=== PATIENT | female | born 1990 | race Caucasian/White ===

== ENCOUNTER 2020-10-10 03:04 | Outpatient (CLI) | payer MEDICAID, SELFPAY ==
[2020-10-10 12:24] LABS: Abs Immature Grans 0.01 10^3/uL (0.0-0.06); Absolute Basophil Count 0.04 10^3/uL (0.0-0.2); Absolute Eosinophil Count 0.25 10^3/uL (0.0-0.7); Absolute Lymphocyte Count 1.94 10^3/uL (1.2-3.4); Absolute Monocyte Count 0.37 10^3/uL (0.1-0.8); Absolute Neutrophil Count 1.83 10^3/uL (1.2-6.7); Basophils % 0.9; Eosinophils % 5.6; HCT 42.4 % (36.0-46.0); HGB 13.7 g/dL (11.2-15.7); Immature Grans % 0.2; Lymphocytes % 43.7; MCH 31.4 pg (27.0-33.0); MCHC 32.3 % (32.0-36.0); MPV 10.1 fL (8.0-11.0); Monocytes % 8.3; Neutrophils % 41.3; Nucleated RBC 0 %; Platelet Count 300 10^3/uL (130-400); RBC 4.37 10^6/uL (3.93-5.22); RDW 11.5 % (11.7-14.6); RDW-SD 41.3 fL; WBC 4.44 10^3/uL (4.4-10.8)
[2020-10-10 12:44] LABS: Hemoglobin A1C 5.4 % (<5.7)
[2020-10-10 12:50] LABS: ALT 26 U/L (14-59); AST 19 U/L (15-37); Albumin 4.1 g/dL (3.4-5.0); Alkaline Phosphatase 62 U/L (46-116); Anion Gap 7.9 mmol/L (3-11); BUN 9 mg/dL (7-18); Bilirubin, Total 0.6 mg/dL (0.2-1.0); CO2 31.1 mmol/L (21.0-32.0); CREATININE 0.8 mg/dL (0.55-1.02); Calcium 8.9 mg/dL (8.5-10.1); Calculated LDL 87 mg/dL (<100); Chloride 104 mmol/L (98-107); Cholesterol 191 mg/dL (<200); Glucose 82 mg/dL (74-106); HDL Cholesterol 98 mg/dL (40-60); Potassium 3.9 mmol/L (3.5-5.1); Sodium 143 mmol/L (136-145); Triglyceride 33 mg/dL (<150)
[2020-10-10 13:03] LABS: Vitamin D 25 Total 36.2 ng/ml (30-100)
[2020-10-10 13:17] LABS: FREE T4 0.93 ng/dL (0.76-1.46)
[2020-10-10 17:57] LABS: Thyroglobulin Antibody <15 U/mL (<=60)
[2020-10-11 13:00] LABS: Lipoprotein (a) 11 mg/dL (<=30)
[2020-10-12 08:33] LABS: Free Retinol (Vitamin A) 47.3 mcg/dL (32.5-78.0)
[2020-10-12 09:34] LABS: IgE 32 IU/mL (<158)
[2020-10-12 09:43] LABS: Homocysteine 12.5 umol/L (5.0-13.9)
== END 2020-10-10 03:05 | disposition home or self-care (01) ==
LOC: LOS 03:05
PROVIDERS: PCP Family Medicine; Visit Provider Naturopath
DX: E55.9 Vitamin D deficiency, unspecified (principal); Z13.220 Encounter for screening for lipoid disorders; Z13.1 Encounter for screening for diabetes mellitus; Z80.8 Family history of malignant neoplasm of other organs or systems; T78.1XXA Other adverse food reactions, not elsewhere classified, initial encounter
CPT/HCPCS: 36415; 80053; 80061; 82306; 83090; 83695; 82785; 83036; 84439; 84443; 84590; 85025; 86800

== ENCOUNTER 2021-01-10 01:57 | Outpatient (CLI) | payer MEDICAID, SELFPAY ==
[2021-01-10 08:52] LABS: Abs Immature Grans 0.01 10^3/uL (0.0-0.06); Absolute Basophil Count 0.06 10^3/uL (0.0-0.2); Absolute Eosinophil Count 0.68 10^3/uL (0.0-0.7); Absolute Lymphocyte Count 2.04 10^3/uL (1.2-3.4); Absolute Monocyte Count 0.57 10^3/uL (0.1-0.8); Absolute Neutrophil Count 2.99 10^3/uL (1.2-6.7); Basophils % 0.9; Eosinophils % 10.7; HCT 43.7 % (36.0-46.0); HGB 14.3 g/dL (11.2-15.7); Immature Grans % 0.2; Lymphocytes % 32.1; MCH 31.5 pg (27.0-33.0); MCHC 32.7 % (32.0-36.0); MCV 96.3 fL (80-95); MPV 9.7 fL (8.0-11.0); Neutrophils % 47.1; Nucleated RBC 0 %; Platelet Count 280 10^3/uL (130-400); RBC 4.54 10^6/uL (3.93-5.22); RDW 11.9 % (11.7-14.6); RDW-SD 41.9 fL; WBC 6.35 10^3/uL (4.4-10.8)
[2021-01-10 08:54] LABS: Hemoglobin A1C 5.3 % (<5.7)
[2021-01-10 10:02] LABS: ALT 31 U/L (14-59); AST 15 U/L (15-37); Alkaline Phosphatase 69 U/L (46-116); Anion Gap 5.7 mmol/L (3-11); BUN 12 mg/dL (7-18); Bilirubin, Total 0.4 mg/dL (0.2-1.0); CO2 32.3 mmol/L (21.0-32.0); CREATININE 0.8 mg/dL (0.55-1.02); Calcium 9.2 mg/dL (8.5-10.1); Calculated LDL 80 mg/dL (<100); Chloride 105 mmol/L (98-107); Cholesterol 191 mg/dL (<200); Glucose 69 mg/dL (74-106); HDL Cholesterol 98 mg/dL (40-60); Potassium 4.9 mmol/L (3.5-5.1); Sodium 143 mmol/L (136-145); TSH 1.73 uIU/mL (0.36-3.74); Total Protein 6.8 g/dL (6.4-8.2); Triglyceride 69 mg/dL (<150)
[2021-01-10 10:34] LABS: FREE T4 0.86 ng/dL (0.76-1.46)
[2021-01-10 16:56] LABS: Thyroglobulin Antibody <15 U/mL (<=60)
[2021-01-11 08:23] LABS: IgE 36 IU/mL (<158)
[2021-01-11 08:24] LABS: Homocysteine 9.9 umol/L (5.0-13.9)
[2021-01-11 12:18] LABS: Lipoprotein (a) 14 mg/dL (<=30)
[2021-01-12 01:09] LABS: Vitamin D 25 Total 82.2 ng/mL (30-100)
[2021-01-12 22:07] LABS: Free Retinol (Vitamin A) 43.8 mcg/dL (32.5-78.0)
== END 2021-01-10 01:58 | disposition home or self-care (01) ==
LOC: LBO 01:57
PROVIDERS: PCP Family Medicine; Visit Provider Naturopath
DX: Z80.8 Family history of malignant neoplasm of other organs or systems (principal); L40.9 Psoriasis, unspecified; E55.9 Vitamin D deficiency, unspecified; Z13.220 Encounter for screening for lipoid disorders; T78.1XXA Other adverse food reactions, not elsewhere classified, initial encounter; Z13.1 Encounter for screening for diabetes mellitus; Z13.29 Encounter for screening for other suspected endocrine disorder
CPT/HCPCS: 36415; 80053; 80061; 82306; 83090; 83695; 82785; 83036; 83088; 84439; 84443; 84590; 85025; 86800